=== PATIENT | male | born 1980 | race Two or more races ===

== ENCOUNTER 2018-05-20 21:44 | Emergency (ER) | payer SELFPAY ==
[~2018-05-20] VITALS: Ht 172.7 cm; Wt 72.6 kg
--- NOTE | 2018-05-20 21:55 | NUR ---
TO BED 1 BIB EMS FOUND LYING ON THE STREET, VOMITING, AROUSABLE TO PAINFUL STIMULI. (+) GAG REFLEX. PLACE PT ON CARDIAC MONITORING, CONTINUOUS POX, O2@2L/NC. CALL LIGHT WITHIN REACH. WILL CONTINUE TO MONITOR PT CLOSELY. PENDING ER MD EDWARDS.
--- NOTE | 2018-05-20 22:07 | NUR ---
ER MD AT BEDSIDE TO EVAL PT WITH ORDERS RECEIVED.
[2018-05-20] MEDS ORDERED: IV NS 0.9% 1,000 ML BAG IV ONE (22:30)
[2018-05-20] MEDS ORDERED: ONDANSETRON HCL/PF 4 MG/2 ML VIAL IVP ONE (22:30)
[2018-05-20 22:35] LABS: BASOPHILS % (AUTO) 0.3 % (0.0-2.0); EOSINOPHILS % (AUTO) 0.6 % (0.0-6.0); HEMATOCRIT 40 % (39-51); HEMOGLOBIN 13.3 g/dL (13.5-17.5); LYMPHOCYTES # (AUTO) 1.9 /CMM (0.8-4.8); LYMPHOCYTES % (AUTO) 17.9 % (20.0-44.0); MEAN CORPUSCULAR HGB CONC 33 g/dl (31.0-36.0); MEAN CORPUSCULAR VOLUME 98 fL (80-96); MONOCYTES # (AUTO) 0.7 /CMM (0.1-1.30); MONOCYTES % (AUTO) 6.3 % (2.0-12.0); NEUTROPHILS # (AUTO) 7.9 /CMM (1.8-8.9); NEUTROPHILS % (AUTO) 74.9 % (43.0-81.0); PLATELET COUNT (AUTO) 304 /CMM (150-450); RED BLOOD CELL COUNT(AUTO) 4.08 MIL/uL (4.5-6.0); WHITE BLOOD COUNT (AUTO) 10.6 K/uL (4.3-11.0)
--- NOTE | 2018-05-20 22:36 | NUR ---
PT TRANSPORTED TO RADIOLOGY FOR CT.
[2018-05-20 22:44] LABS: CALCIUM, SERUM 8.2 mg/dL (8.5-10.1); CREATININE 0.7 mg/dL (0.6-1.3); POTASSIUM 3.9 mmol/L (3.5-5.1)
[2018-05-20] MEDS ORDERED: ONDANSETRON HCL/PF 4 MG/2 ML VIAL ONE (22:47)
--- NOTE | 2018-05-20 22:51 | NUR ---
PT BACK FROM RADIOLOGY. PENDING CT RESULT.
[2018-05-20 22:52] LABS: ALBUMIN 3.9 g/dL (3.4-5.0); BILIRUBIN,TOTAL 0.1 mg/dL (0.2-1.0); TOTAL PROTEIN, SERUM 7.2 g/dL (6.4-8.2)
[2018-05-20 22:54] LABS: SALICYLATE 1.5 mg/dL (2.8-20.0)
--- NOTE | 2018-05-21 00:03 | NUR ---
PT REMAINS ASLEEP, NO ACUTE DISTRESS NOTED, RESP EVEN AND UNLABORED. CALL LIGHT WITHIN REACH. WILL CONTINUE TO MONITOR PT CLOSELY.
--- NOTE | 2018-05-21 02:33 | NUR ---
PT REMAINS ASLEEP, MILDLY AROUSABLE, NO ACUTE DISTRESS NOTED, RESP EVEN AND UNLABORED. CALL LIGHT WITHIN REACH. WILL CONTINUE TO MONITOR PT CLOSELY.
--- NOTE | 2018-05-21 05:35 | NUR ---
PT REMAINS ASLEEP, EASILY AROUSABLE, NO ACUTE DISTRESS NOTED, RESP EVEN AND UNLABORED. CALL LIGHT WITHIN REACH. WILL CONTINUE TO MONITOR PT CLOSELY.
--- NOTE | 2018-05-21 06:27 | NUR ---
PT AWAKE, AAOX4 NO ACUTE DISTRESS NOTED, RESP EVEN AND UNLABORED. PT DENIES PAIN OR DISCOMFORT AT THIS TIME. PT AMBULATORY TO THE BATHROOM WITH STEADY GAIT NOTED. PENDING DISPOSITION.
--- NOTE | 2018-05-21 06:29 | NUR ---
IV removed. Catheter intact and site benign. Pressure and 4x4 applied to site. No bleeding noted.
[2018-05-21 07:31] VITALS: BP 130/60
--- NOTE | 2018-05-21 07:33 | NUR ---
For discharge. ACI given, verbalized understanding. AAO, ambulatory gait steady
== END 2018-05-21 07:33 | disposition home or self-care (01) ==
LOC: ER 21:51 → EDBD 21:51 → ER 05-21 07:33
DX: F10.129 Alcohol abuse with intoxication, unspecified (principal); R94.31 Abnormal electrocardiogram [ECG] [EKG]; Y90.8 Blood alcohol level of 240 mg/100 ml or more
CPT/HCPCS: 36415; 70450-TC; 71045-TC; 72125-TC; 80048-TC; 80076-TC; 85025-TC; A4606; G0480; J2405; J7030; Z7610